=== PATIENT | female | born 1970 | race African-American/Black ===

== ENCOUNTER 2020-03-22 07:30 | Day surgery (SDC) | payer MEDICARE ==
[~2020-03-22] VITALS: Ht 157.5 cm; Wt 145.5 kg
--- NOTE | ~2020-03-22 | OP ---
PATIENT NAME: DORIS POLK MEDICAL RECORD: [id number] :74 LOCATION:[facility] ADMISSION DATE: SURGEON: DEBORAH DUNCAN MD DATE OF OPERATION: 03/22/2020 PROCEDURE: EGD with balloon dilatation and EGD with biopsy. CHIEF LIBRARIAN BRANCH OR DEPARTMENT: Deborah Duncan MD BRIEF HISTORY AND PHYSICAL: Mrs. Polk is a very pleasant 49-year-old lady who was seen in clinic on 03/13/2020 as a followup visit. She was last seen in clinic on 02/16/2019 with complaint of dysphagia with associated gastroesophageal reflux disease, which had been occurring intermittently for several months and has continued to occur. She takes famotidine at a dose of 20 mg p.o. every day. The patient recently had an EGD an 08/16/2015 with findings of a stenotic stricture at the distal esophageal area due to refluxing which was dilated to 54-[place] without complication. She additionally was noted to have mild to moderate gastritis and mild duodenitis. Her path report was unremarkable with just inflammation shown in the esophagus and stomach. H. pylori was negative. The patient was treated at that time with Prevacid 30 mg p.o. q.a.m. and famotidine 20 mg p.o. at bedtime. She was asked to follow reflux precautions stringently, both dietary and positional. She will have an EGD with plans for balloon dilatation this date. FINDINGS: Informed consent was given. The patient was made comfortable with the above medications. After reaching an adequate level of sedation by slow IV push, the patient was placed on her left side. The endoscope was then advanced under direct visualization through the posterior pharyngeal area and advanced to the distal esophagus. At the distal esophageal area, a stenotic stricture was appreciated and a CRE Microvasive balloon was placed in this area and slowly inflated to 57-[place], held in place for 1 minute without complication. The balloon was then withdrawn. The patient was noted to have signs of erosive esophagitis at the gastroesophageal junction and multiple biopsies were obtained. A small hiatal hernia was then seen upon both direct and retroflex views. The scope was then advanced into the cardia and fundus were mild inflammation was encountered and we then proceeded through the body of the stomach again with mild inflammation noted. The antral area was significant for erosive gastritis as well as an ulcer at the 10 o'clock position. This ulcer was not seem to be bleeding. A histopathology and flow biopsy was taken within the antral area. The duodenal bulb to the second portion had only mild inflammation present. No ulcers or erosions and biopsies were taken in the second portion of the duodenum. The scope was then withdrawn. IMPRESSION: 1. Distal esophageal stricture which is recurrent and due to gastroesophageal reflux disease. This stricture was dilated to 57-[place] without complication. 2. Erosive esophagitis. OPERATIVE REPORT [id number] DORIS POLK 3. Small hiatal hernia. 4. Erosive gastritis at the antral area. 5. Gastric ulcer at the antral area without visible vessel, not actively bleeding. 6. Mild duodenitis, biopsy taken at the second portion of the duodenum. PLAN: 1. We will start the patient on omeprazole at 20 mg p.o. q.a.m. and famotidine 40 mg p.o. at bedtime. 2. The patient to follow reflux precautions stringently, both dietary and positional. She should avoid chocolate, tomato, citrus, caffeine, fatty foods, peppermint. The patient should sit up for 2 hours after every meal and not eat late at night. 3. Caution with anti-inflammatory drugs. 4. Repeat the EGD in 8 weeks. To document healing of the gastric ulcer at the antral area, the patient may require another balloon dilatation at that time. 5. The patient has a BMI of 57 and she will be advised to begin a weight reduction program. TRANSINT:[id number] Voice Confirmation ID: [id number] DOCUMENT ID: [id number] DEBORAH DUNCAN MD CC: ERIKA PATEL MD and TEDDY MARTINEZ MD [id number] DICTATION DATE: 03/22/20 1113 RAIL PROJECT ENGINEER: 03/22/20 180 [facility] 03/22/20 [facility] [address] [id number]
[~2020-03-22 07:30] MED LIST: CELEXA40 MG PO; CLARITIN 10 MG10 MG PO; DYAZIDE 37.5/251 CAP PO; FERROCITE PLUS1 CAP PO; HYDROCODONE-APA1 TAB PO; KLOR-CON 1010 MEQ PO; LASIX20 MG PO; METOPROLOL TAR100 M1 PO; NORVASC5 MG PO; PREDNISONE20 MG PO; PREVACID15 MG PO; ROBAXIN500 MG PO; VALIUM 2 MG TAB2 MG PO; VOLTAREN75 MG PO
[2020-03-22 07:57] LABS: ANION GAP 9.8 mmol/L (8-16); CALCIUM 9.8 mg/dL (8.5-10.1); CARBON DIOXIDE 30.3 mmol/L (21.0-32.0); POTASSIUM - SERUM 4.1 mmol/L (3.5-5.1)
[2020-03-22 08:16] LABS: HEMATOCRIT 35.5 % (36.0-48.0); MCH 25.9 pg (26.0-34.0); MCV 83.5 fL (80.0-100.0); MEAN PLATELET VOLUME 10.6 fL (7.4-10.4); RBC 4.25 10x6/uL (4.00-5.40); RDW 14.1 % (11.5-14.5); WBC 8.8 10x3/uL (4.8-10.8)
[2020-03-22] MEDS ORDERED: ZOLOFT100 MG PO (08:54)
[2020-03-22] MEDS ORDERED: PEPCID40 MG (08:55)
[2020-03-22] MEDS ORDERED: ZANAFLEX4 MG PO (08:57)
[2020-03-22] MEDS ORDERED: GLUCOPHAGE1000 MG PO (08:58)
[2020-03-22] MEDS ORDERED: GLUCOTROL ER2.5 MG PO (08:59)
[2020-03-22] MEDS ORDERED: LYRICA75 MG PO (08:59)
[2020-03-22] MEDS ORDERED: KEFLEX500 MG PO (09:00)
[2020-03-22] MEDS ORDERED: CLINDAMYCIN HC300 MG PO (09:02)
[2020-03-22 09:16] VITALS: BP 141/92; Ht 157.5 cm; Wt 145.5 kg
--- NOTE | 2020-03-22 10:15 | NUR ---
DR HERNANDEZ NOTIFIED AND REVIEWED PT'S BEHAVIOR AND ASSESSMENT. PT IS A LOW RISK. RESOURCES GIVEN AND SHE VERBALIZES UNDERSTANDING.
--- NOTE | 2020-03-22 11:21 | NUR ---
1115-RETURNED TO ROOM. 1120-UP TO BATHROOM.
--- NOTE | 2020-03-22 11:58 | NUR ---
1155-DR ZARATE ROUNDS TO REPORT FINDINGS.
--- NOTE | 2020-03-22 12:06 | NUR ---
1205-D/C HOME VIA WHEELCHAIR TO FAMILY
== END 2020-03-22 12:05 | disposition home or self-care (01) ==
LOC: D.OPS 07:30
PROVIDERS: Anesthesiology; ATTEND Internal Medicine Gastroenterology
DX: R13.10 Dysphagia, unspecified (principal); K22.2 Esophageal obstruction; J45.909 Unspecified asthma, uncomplicated; R12 Heartburn; K92.1 Melena; Z86.010 Personal history of colon polyps; K57.90 Diverticulosis of intestine, part unspecified, without perforation or abscess without bleeding

== ENCOUNTER 2020-03-29 08:14 | Day surgery (SDC) | payer MEDICARE ==
[~2020-03-29] VITALS: Ht 157.5 cm; Wt 145.5 kg
--- NOTE | ~2020-03-29 | OP ---
PATIENT NAME: DORIS POLK MEDICAL RECORD: [id number] :74 LOCATION:[facility] ADMISSION DATE: SURGEON: DEBORAH DUNCAN MD DATE OF OPERATION: 03/29/2020 PROCEDURE: Colonoscopy with polypectomy, colonoscopy with biopsy. SUPERVISOR LIQUEFACTION: Deborah Duncan MD SCOPE: An Olympus video colonoscope. MEDICATIONS: Per TIVA anesthesia. The patient received 300 mg of propofol for this procedure, O2 4 liters. INDICATION FOR THE PROCEDURE: Hematochezia, history of colon polyps, history of diverticular disease. Family history is negative for colon cancer. BRIEF HISTORY AND PHYSICAL: Ms. Polk is a very pleasant 49-year-old lady who presented to clinic on 03/13/2020 with complaint of spencer hematochezia consisting of a very small amount on the toilet tissue after a bowel movement. She does have a history of internal and external hemorrhoids. The patient states she has 2-3 loose bowel movements daily with no particular bowel regimen. She had a colonoscopy on 02/02/2016 and this revealed hyperplastic polyps, pandiverticulosis without diverticulitis and both internal and external hemorrhoids. She will have a colonoscopy for further evaluation of her hematochezia this date. FINDINGS: Informed consent was given. The patient was made comfortable with the above medications. After reaching an adequate level of sedation by slow IV push, the patient was placed on her left side. The rectal exam revealed good sphincter tone. No fissures or fistulas were appreciated. No external skin tags were seen. The colonoscope was advanced to the cecum where the ileocecal valve and appendiceal orifice were identified. At the junction of the terminal ileum to the ileocecal valve, some inflammation was appreciated and biopsies were obtained. On withdrawal of the scope, mucosa was carefully inspected. The patient was seen to have some very mild diverticulosis without diverticulitis. On additional withdrawal of the scope and at the distal sigmoid area. Two small polyps were encountered. The first was 1 cm in size. The second was 0.5 cm in size and both were removed with hot biopsy forceps technique. On retroflexion and final withdrawal of the scope, the patient was noted to have both internal and external hemorrhoids, which are likely the cause of her bleeding. IMPRESSION: 1. Cecum reached with some inflammation at the junction of the ileocecal valve to the terminal ileum and biopsies obtained. 2. Very mild diverticulosis without diverticulitis. 3. Two small benign-appearing sessile polyps at the distal sigmoid area. These were both removed with hot biopsy forceps technique. 4. Internal and external hemorrhoids, which are likely the cause of the patient's bleeding. PLAN: 1. The patient should follow a high fiber diet. 2. No anti-inflammatory drugs times 14 days. 3. For the hemorrhoids, I would recommend cortisone 1% cream to be applied to OPERATIVE REPORT [id number] DORIS POLK the internal and external hemorrhoids b.i.d. for 10 days. If the patient prefers Anusol-HC suppositories, I will be glad to write the prescription, but the cost is generally prohibitive and the ulti-eic-kuiypdc cortisone cream is generally affordable. Return to clinic on a p.r.n. basis. TRANSINT:[id number] Voice Confirmation ID: [id number] DOCUMENT ID: [id number] DEBORAH DUNCAN MD CC: ERIKA PATEL MD and TEDDY MARTINEZ MD [id number] DICTATION DATE: 03/29/20 1141 RUBBER PROCESS HAND: 03/29/20 1338 [facility] 03/29/20 [id number] [place] [address]
[~2020-03-29 08:14] MED LIST changes: +CLINDAMYCIN HC300 MG PO; +GLUCOPHAGE1000 MG PO; +GLUCOTROL ER2.5 MG PO; +KEFLEX500 MG PO; +LYRICA75 MG PO; +PEPCID40 MG; +ZANAFLEX4 MG PO; +ZOLOFT100 MG PO
[2020-03-29 08:37] LABS: CALC OSMOLALITY 272 mosm/kg (275-300); CALCIUM 9.5 mg/dL (8.5-10.1); CARBON DIOXIDE 29.7 mmol/L (21.0-32.0); CHLORIDE - SERUM 102 mmol/L (98-107); CREATININE - SERUM 0.8 mg/dL (0.6-1.3); GLUCOSE 113 mg/dL (74-106); POTASSIUM - SERUM 3.7 mmol/L (3.5-5.1); SODIUM 136 mmol/L (136-145); UREA NITROGEN 13 mg/dL (7-18); eGFR NON AFRICAN AMERICAN 81 mL/min (90-120)
[2020-03-29 08:42] LABS: HEMATOCRIT 35.9 % (36.0-48.0); HEMOGLOBIN 11.2 g/dL (12-16); MCH 25.9 pg (26.0-34.0); MCHC 31.2 g/dL (31.0-37.0); MCV 83.1 fL (80.0-100.0); MEAN PLATELET VOLUME 10.2 fL (7.4-10.4); RBC 4.32 10x6/uL (4.00-5.40); RDW 14.3 % (11.5-14.5)
[2020-03-29 09:32] VITALS: Ht 157.5 cm; Wt 145.5 kg
--- NOTE | 2020-03-29 12:11 | NUR ---
1206 IV DC'D. CATHETER TIP INTACT. NO BLEEDING AT SITE. BANDAID APPLIED. PT VOICES UNDERSTANDING OF DISCHARGE INSTRUCTIONS AND IS READY TO BE DISCHARGED HOME
== END 2020-03-29 12:18 | disposition home or self-care (01) ==
LOC: D.OPS 08:14
PROVIDERS: Anesthesiology; ATTEND Internal Medicine Gastroenterology
DX: K92.1 Melena (principal); Z86.010 Personal history of colon polyps; J45.909 Unspecified asthma, uncomplicated; R13.10 Dysphagia, unspecified; R12 Heartburn; K57.90 Diverticulosis of intestine, part unspecified, without perforation or abscess without bleeding; K63.5 Polyp of colon